=== PATIENT | male | born 1970 | race Caucasian/White ===

== ENCOUNTER 2020-11-26 13:35 | Emergency (ER) | payer MEDICARE ==
[~2020-11-26 13:35] MED LIST: CLARITIN10 MG PO; NOVOLOG VI100 UNIT/1 SQ; PERCOCET 5-3251 EACH PO; PROTONIX 40MG T40 MG PO; VOLTAREN **OUT75 MG PO
[2020-11-26 14:09] LABS: BASOPHIL 0.8 % (0-2); EOSINOPHIL 1.7 % (0-5); HCT 47.6 % (42.0-52.0); LYMPHOCYTE 27.9 % (15-48); MCH 31.7 pg (25.0-31.0); MCHC 33.6 g/dL (32.0-36.0); MCV 94.3 fL (78.0-100.0); MONOCYTE 7.8 % (0-12); MPV 11.6 fL (6.0-9.5); NEUTROPHIL 61.3 % (41-80); NRBC 0; PLT 181 K/uL (150-400); RBC 5.05 M/uL (4.70-6.00); RDW 11.8 % (11.5-14.0); WBC 13.2 K/uL (4.0-10.5)
[2020-11-26 14:21] LABS: ALBUMIN 3.9 g/dL (3.4-5.0); BILIRUBIN - TOTAL 0.5 mg/dL (0.2-1.0); BUN/CREAT RATIO (CALC) 13.4 RATIO; CREATININE 0.67 mg/dL (0.67-1.17); GLOBULIN (CALCULATION) 2.7 g/dL; INR 1.1 (0.9-1.2); POTASSIUM 3.9 mmol/L (3.5-5.1); PROTHROMBIN TIME 13.5 SECONDS (11.4-13.6); PTT 26.5 SECONDS (22.2-34.7); TOTAL PROTEIN 6.6 g/dL (6.4-8.2)
== END 2020-11-26 16:06 | disposition home or self-care (01) ==
LOC: FER 13:35
PROVIDERS: Emergency Medicine
DX: E11.40 Type 2 diabetes mellitus with diabetic neuropathy, unspecified (principal); R07.89 Other chest pain; R06.02 Shortness of breath; R11.0 Nausea; R42 Dizziness and giddiness; F17.210 Nicotine dependence, cigarettes, uncomplicated; Z79.4 Long term (current) use of insulin
CPT/HCPCS: 36415; 70450; 71045; 80053; 84484; 85025; 85610; 85730; 93005; J1885

== ENCOUNTER 2021-04-18 10:39 | Emergency (ER) | payer MEDICARE ==
[2021-04-18 11:20] LABS: BASOPHIL 0.4 % (0-2); EOSINOPHIL 0.1 % (0-5); HCT 46.5 % (42.0-52.0); LYMPHOCYTE 4.2 % (15-48); MCH 31.4 pg (25.0-31.0); MCHC 34.4 g/dL (32.0-36.0); MCV 91.4 fL (78.0-100.0); MONOCYTE 7.9 % (0-12); MPV 12.1 fL (6.0-9.5); NEUTROPHIL 86.3 % (41-80); NRBC 0; PLT 147 K/uL (150-400); RBC 5.09 M/uL (4.70-6.00); RDW 11.9 % (11.5-14.0); WBC 22.1 K/uL (4.0-10.5)
[2021-04-18 11:37] LABS: ALBUMIN 3.2 g/dL (3.4-5.0); BILIRUBIN - TOTAL 1.1 mg/dL (0.2-1.0); BUN/CREAT RATIO (CALC) 22.4 RATIO; CREATININE 0.67 mg/dL (0.67-1.17); GLOBULIN (CALCULATION) 4.3 g/dL; POTASSIUM 4.4 mmol/L (3.5-5.1); TOTAL PROTEIN 7.5 g/dL (6.4-8.2)
[2021-04-18 13:00] LABS: LACTIC ACID 2.2 mmol/L (0.4-1.9)
[2021-04-18] MEDS ORDERED: BACTRIM DS TAB1 EACH PO (15:05)
== END 2021-04-18 15:20 | disposition home or self-care (01) ==
LOC: FER 10:39
PROVIDERS: Emergency Medicine
DX: R07.89 Other chest pain (principal); L02.212 Cutaneous abscess of back [any part, except buttock and flank]; E11.9 Type 2 diabetes mellitus without complications; F17.210 Nicotine dependence, cigarettes, uncomplicated; Z20.822 Contact with and (suspected) exposure to COVID-19
CPT/HCPCS: 36415; 71045; 80053; 83605; 84484; 85025; 93005; J1885; J7030; U0002